=== PATIENT | female | born 1945 | race Caucasian/White ===

== ENCOUNTER 2016-07-14 10:16 | Emergency (ER) | payer OTHER, MEDICARE ==
[~2016-07-14 10:16] MED LIST: ASPIRIN CHILDRE81 MG PO; KEFLEX500 M1 PO; LEVOTHYROXINE0.05 M1 PO; MACROBID 100 M100 MG PO; VITAMIN D1000 UNIT PO; ZOFRAN ODT4 MG SL
--- NOTE | 2016-07-14 10:27 | ED CARDIAC/CP/PALPITATIONS ---
History of Present Illness General Chief Complaint: General Adult Stated Complaint: TACHACARDIA Source: patient Exam Limitations: no limitations Vital Signs & Intake/Output Vital Signs & Intake/Output Vital Signs Date Time Temp Pulse Resp B/P Pulse O2 O2 Flow FiO2 Ox Delivery Rate 07/14 1159 96.6 81 16 144/77 97 Room Air 07/14 1037 Room Air Room Air 07/14 1023 98.2 122 22 137/93 98 Room Air Room Air Allergies Coded Allergies: Penicillins (HIVES 04/07/16) erythromycin base (DIARRHEA 04/07/16) Uncoded Allergies: MOLD (UNKNOWN 07/10/12) Reconcile Medications Levothyroxine Sodium 50 MCG TABLET 0.05 MG PO DAILY AC THYROID (Reported) Nitrofurantoin Monohyd/M-Cryst (Macrobid 100 MG Capsule) 100 MG CAPSULE 1 CAP PO BID uti with food Triage Nurses Notes Reviewed? yes HPI: 71-year-old female arrived to triage to room 2 for evaluation of epigastric pressure or chest pressure that occurred prior to arrival. She reports that she was able to eat breakfast this morning and then right after she was eating she developed this pressure in her epigastric area that radiated up into her throat along with a belching sensation. The pressure went away and then she developed a rapid heart rate. She denies any chest pressure per se but is unable to describe the feeling in her chest. She denies any nausea, vomiting or diarrhea. She denies any fatigue, lightheaded or dizziness. She does have a rapid heart rate feeling like palpitations. She reports she has symptoms like this prior back in May and followed up with Dr. 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 She never saw the orange picker machine operator, missed the appointment and now she is going to see Dr. Aston Macario in 2 weeks. She also reports that she has been under a lot of stress at work and believes the symptoms, at work and after eating. She reports it never happens on exertion. She has risk factors of cardiovascular disease hyperlipidemia, age, inactivity but she does not smoke, no hypertension, no diabetes and no family history. (EYAD MADRIGAL APRN) Past History Travel History Traveled to [place] past 21 day No Medical History Any Pertinent Medical History? see below for history Cardiovascular: HLD Endocrine: hypothyroidism History of MRSA: No History of VRE: No History of CDIFF: No Tetanus Vaccine: 04/07/16 Surgical History Surgical History: non-contributory Psychosocial History What is your primary language Citizen Of [place] Tobacco Use: Never used ETOH Use: denies use Illicit Drug Use: denies illicit drug use Family History Family History, If Any: MOTHER FH: hypertension FH: hypothyroidism Hx Contributory? No (EYAD MADRIGAL APRN) Review of Systems Review of Systems Constitutional: Reports: no symptoms. EENTM: Reports: no symptoms. Respiratory: Reports: no symptoms. Cardiovascular: Reports: see HPI, chest pain, palpitations. GI: Reports: see HPI, abdominal pain, bloating. Genitourinary: Reports: no symptoms. Musculoskeletal: Reports: no symptoms. Skin: Reports: no symptoms. Neurological/Psychological: Reports: no symptoms. Hematologic/Endocrine: Reports: no symptoms. Immunologic/Allergic: Reports: no symptoms. All Other Systems: Reviewed and Negative (EYAD MADRIGAL APRN) Physical Exam Physical Exam General Appearance: well developed/nourished, alert, awake, anxious Head: atraumatic, normal appearance Eyes: Bilateral: normal appearance, PERRL, EOMI. Ears, Nose, Throat: normal pharynx, normal ENT inspection Neck: normal inspection, supple, full range of motion Respiratory: normal breath sounds, chest non-tender, no respiratory distress Cardiovascular: tachycardia Peripheral Pulses: 2+ radial (R), 2+ radial (L) Gastrointestinal: normal bowel sounds, soft, non-tender Back: normal inspection, normal range of motion Extremities: normal inspection, normal capillary refill, normal range of motion, no edema Neurologic/Psych: no motor/sensory deficits, awake, alert, oriented x 3, normal gait, normal mood/affect Skin: intact, normal color, warm/dry Core Measures ACS in differential dx? No Severe Sepsis Present: No Septic Shock Present: No (EYAD MADRIGAL APRN) Progress Differential Diagnosis: hypovolemia, PSVT, THYROID DISEASE, ELECTROLYTE IMBALANCE, INAPPROPRIATE SINUS TACHYCARDIA Initial ED EKG: SINUS TACH RATE 123, NONSPECIFIC st DEPRESSIONS IN INFERIOR AND ANTERIOR LEADS WHICH IS NO CHANGE FROM ekg may 2016 Prior EKG: unchanged Repeat EKG: unchanged (rate decreased) Rhythm Strip: normal sinus rhythm, sinus tachycardia, WAS st NOW nsr Comments: 12:[address] Olivarez, he agrees that we will repeat a second troponin and ECG and be able to discharge home with follow-up with cardiology. Probably more likely related to sinus tachycardia, inappropriate will need out patient cardiac testing. 3:17 PM second troponin negative. Repeat ECG shows normal sinus rhythm in the 70s with no ST-T changes. (EYAD MADRIGAL APRN) Plan of Care: Orders Procedure Date/time Status TROPONIN LEVEL 07/14 1430 Complete EKG 07/14 1430 Active Telemetry/Beverage Server 07/14 1033 Active THYROID STIMULATING HORMONE 07/14 1033 Complete TROPONIN LEVEL 07/14 1033 Complete MAGNESIUM 07/14 1033 Complete COMPREHENSIVE METABOLIC PANEL 07/14 1033 Complete CBC WITHOUT DIFFERENTIAL 07/14 1033 Complete EKG 07/14 1017 Active Laboratory Tests 07/14/16 1425: Troponin I < 0.01 07/14/16 1040: Anion Gap 13, Estimated GFR > 60, BUN/Creatinine Ratio 21.1, Glucose 102 H, Calcium 9.7, Magnesium 2.0, Total Bilirubin 0.6, AST 25, ALT 42, Alkaline Phosphatase 85, Troponin I < 0.01, Total Protein 7.7, Albumin 4.4, Globulin 3.3, Albumin/Globulin Ratio 1.3, TSH 3.170, CBC w Diff NO MAN DIFF REQ, RBC 4.62, MCV 90.9, MCH 30.8, RDW 13.7, MPV 8.1, Gran % 50.4, Lymphocytes % 35.2, Monocytes % 11.9 H, Eosinophils % 1.8, Basophils % 0.7, Absolute Granulocytes 2.9, Absolute Lymphocytes 2.0, Absolute Monocytes 0.7 H, Absolute Eosinophils 0.1, Absolute Basophils 0, PUBS MCHC 33.9 Departure Departure Time of Disposition: 1515 Disposition: HOME OR SELF CARE Condition: Stable Clinical Impression Primary Impression: Tachycardia Referrals: RUCHI TRIVEDI,JOSE ELY MD,JOSE Salazar (PCP/Family) Additional Instructions: Please follow up with Jose Macario MD has already directed. Please return to the emergency department for any worsening or concerning symptoms. Departure Forms: Customer Survey General Discharge Information (EYAD MADRIGAL APRN) PA/LEAD ELECT[employer]ICAL CONTROLS ENGINEER Co-Sign Statement Statement: ED Attending supervision documentation- [X] I saw and evaluated the patient. I have also reviewed all the pertinent lab results and diagnostic results. I agree with the findings and the plan of care as documented in the PA's/LEAD ELECT[employer]ICAL CONTROL[employer] ENGINEER's documentation. [] I have reviewed the ED Record and agree with the PA's/LEAD ELECT[employer]ICAL CONTROLS ENGINEER's documentation. [] Additions or exceptions (if any) to the PAs/LEAD ELECT[employer]ICAL CONTROLS ENGINEER's note and plan are summarized below: [] (BO TRIVEDI,EULA Perera) Critical Care Note Critical Care Note Critical Care Time: non-applicable (EYAD MADRIGAL APRN)
[2016-07-14 10:56] LABS: ABSOLUTE BASOPHIL COUNT 0 /CUMM (0.0-0.2); ABSOLUTE EOSINOPHIL COUNT 0.1 /CUMM (0.0-0.7); ABSOLUTE GRANULOCYTE CT 2.9 /CUMM (1.4-6.5); ABSOLUTE MONOCYTE COUNT 0.7 /CUMM (0.10-0.60); BASOPHIL % 0.7 % (0.0-2.0); WHITE BLOOD CELL COUNT 5.7 /CUMM (4.8-10.8)
[2016-07-14 11:00] LABS: EOSINOPHIL % 1.8 % (0-5); GRANULOCYTE % 50.4 % (42.2-75.2); MEAN CORPUSCULAR HGB 30.8 PG (27.0-31.0); MEAN CORPUSCULAR HGB CONC 33.9 G/DL (33.0-37.0); MEAN CORPUSCULAR VOLUME 90.9 FL (81.0-99.0); MEAN PLATELET VOLUME 8.1 FL (7.4-10.4); PLATELET COUNT 239 /CUMM (130-400); RBC DISTRIBUTION WIDTH 13.7 % (11.5-14.5); RED BLOOD CELL CT 4.62 /CUMM (4.20-5.40)
[2016-07-14 15:37] VITALS: BP 129/60
== END 2016-07-14 15:38 ==
LOC: ERH 10:16
PROVIDERS: Nurse Practitioner Family
DX: R00.0 Tachycardia, unspecified (principal); R07.89 Other chest pain
CPT/HCPCS: 93005; 93010; 96360